=== PATIENT | male | born 1985 | race Caucasian/White ===

== ENCOUNTER 2022-01-21 02:06 | Emergency (ER) | payer OTHER ==
[2022-01-21 02:21] VITALS: BP 149/91; PULSE 122; RESP 18; TEMP 98.5
--- NOTE | 2022-01-21 02:38 | ED ---
General Adult HPI - General Source: patient, police Mode of arrival: ambulatory Limitations: no limitations <Shikha Jones - Last Filed: 01/22/22 21:36> <Chandana Wiley - Last Filed: 01/23/22 05:33> - General Chief complaint: Head Injury Stated complaint: [facility] - History of Present Illness Initial comments: 36-year-old male presents to the emergency department in police custody for evaluation of injuries to the mouth and face. In route to the [facility], patient repeatedly struck his face against the partition he and the officer. He complains of mild discomfort on his forehead where there is a superficial abrasion noted. Also complains of mouth pain. He has a laceration along the mucosal surface of the lower lip near the inferior labial frenulum. He also pain and swelling on the mucosa of the upper lip as well. Complains of headache and nausea. No loss of consciousness or dizziness at this time. (Shikha Jones) - Related Data Allergies Allergy/AdvReac Type Severity Reaction Status Date / Time Penicillins Allergy Unknown Verified 01/21/22 02:22 Childhood Review of Systems ROS Other: All systems not noted in ROS Statement are negative. <Shikha Jones - Last Filed: 01/22/22 21:36> ROS Other: All systems not noted in ROS Statement are negative. <Chandana Wiley - Last Filed: 01/23/22 05:33> ROS Statement: Those systems with pertinent positive or pertinent negative responses have been documented in the HPI. Past Medical History Past Medical History: Asthma History of Any Multi-Drug Resistant Organisms: None Reported Past Surgical History: No Surgical Hx Reported Past Psychological History: Anxiety, Depression Smoking Status: Current some day smoker Past Alcohol Use History: Occasional Past Drug Use History: None Reported <Shikha Jones - Last Filed: 01/22/22 21:36> General Exam Limitations: no limitations <Shikha Jones - Last Filed: 01/22/22 21:36> General appearance: alert, in no apparent distress Head exam: Present: atraumatic, normocephalic Eye exam: Present: normal appearance, PERRL, EOMI. Absent: scleral icterus, conjunctival injection, nystagmus Neck exam: Present: normal inspection Respiratory exam: Present: normal lung sounds bilaterally. Absent: respiratory distress, wheezes, rales, rhonchi, stridor Cardiovascular Exam: Present: regular rate, normal rhythm, normal heart sounds. Absent: systolic murmur, diastolic murmur, rubs, gallop GI/Abdominal exam: Present: soft. Absent: distended, tenderness, guarding, rebound, rigid, mass Neurological exam: Present: alert, oriented X3, CN II-XII intact. Absent: motor sensory deficit Skin exam: Present: warm, dry, normal color, other (Laceration) <Chandana Wiley - Last Filed: 01/23/22 05:33> Course <Shikha Jones - Last Filed: 01/22/22 21:36> Vital Signs 01/21/22 02:15 Temperature 98.5 F Pulse Rate 122 H Respiratory 18 Rate Blood Pressure 149/91 O2 Sat by Pulse 97 Oximetry - Reevaluation(s) Reevaluation #1: 01/21/22 02:36 This patient will return to the waiting room until a bed is available at which time his care will be assumed by my attending, Dr. Wiley. (Shikha Jones) Procedures - Laceration Laceration #1 Consent Obtained: verbal consent Indication: laceration Site: oral Description: linear Depth: simple, single layer Anesthetic Used: lidocaine 1% Anesthesia Technique: local infiltration Type of Sutures: vicryl Size of Sutures: 5-0 Number of Sutures: 3 Technique: simple, interrupted Patient Tolerated Procedure: well, no complications <SaurabhChandana - Last Filed: 01/23/22 05:33> Disposition <Shikha Jones - Last Filed: 01/22/22 21:36> Is patient prescribed a controlled substance at d/c from ED?: No <SaurabhChandana - Last Filed: 01/23/22 05:33> Clinical Impression: Concussion without loss of consciousness, Laceration of lip Disposition: HOME SELF-CARE Condition: Good Instructions (If sedation given, give patient instructions): Laceration (DC), Concussion (ED) Referrals: Kj De La Fuente MD [Primary Care Provider] - 1-2 days
[2022-01-21] MEDS ORDERED: ACETAMINOPHEN TAB 325 MG TAB PO STA (03:37)
[2022-01-21] MEDS ORDERED: IBUPROFEN 400 MG TAB PO STA (03:37)
[2022-01-21] MEDS ORDERED: LIDOCAINE 1% INJ 10MG/ML (5 ML VIAL-PF) SQ STA (03:37)
--- NOTE | 2022-01-21 04:33 | CT ---
EXAM: CT Head Without Intravenous Contrast CLINICAL HISTORY: ITS.REASON CT Reason: head injury TECHNIQUE: Axial computed tomography images of the head/brain without intravenous contrast. CTDI is 49.2 mGy and DLP is 1166.4 mGy-cm. This CT exam was performed using one or more of the following dose reduction techniques: automated exposure control, adjustment of the mA and/or kV according to patient size, and/or use of iterative reconstruction technique. COMPARISON: No previous studies. FINDINGS: Brain: No abnormal extra-axial collection is noted. No hemorrhage. No significant white matter disease. Midline shift: Midline anatomy is within normal limits. Ventricles: The ventricular system is age appropriate. Bones/joints: Calvarium is within normal limits. No acute fracture. Soft tissues: Unremarkable. Sinuses: Mild chronic right maxillary sinusitis. Mild to moderate chronic sphenoid and ethmoid sinusitis. Mastoid air cells: Mastoid air cells are well pneumatized. IMPRESSION: 1. No acute intracranial pathology. 2. If there is concern for etiology such as early acute lacunar infarcts, MRI imaging of the brain with diffusion-weighted sequences should be performed.
== END 2022-01-21 04:41 | disposition home or self-care (01) ==
LOC: EC 02:06
DX: Z88.0 Allergy status to penicillin; J45.909 Unspecified asthma, uncomplicated; F17.200 Nicotine dependence, unspecified, uncomplicated
CPT/HCPCS: 70450